=== PATIENT | female | born 1955 | race Caucasian/White ===

== ENCOUNTER → 2017-10-18 | Outpatient (CLI) | payer OTHER ==
[~2017-10-18] MED LIST: ALPHA LIPOIC A100 MG PO; ALPHA LIPOIC A300 MG PO; CALCIUM 600 +1 EAC1 PO; CENTRUM SILVER1 EAC2 PO; CENTRUM SILVER1 EAC4 PO; FISH OIL 500 M1 EAC1 PO; HYDROCHLOROTHIA25 M2 PO; MAGOX 400400 MG PO; PRINIVIL20 MG PO; ULTRAM 50MG TAB50 MG PO; VITAMIN D1000 UNI1 PO; VITAMIN E400 UNIT PO
== END ==
LOC: M.RAD 14:56
DX: Z12.31 Encounter for screening mammogram for malignant neoplasm of breast (principal)

== ENCOUNTER → 2018-12-07 | Outpatient (CLI) | payer OTHER | LOC: M.RAD 12-04 16:00 | DX: Z12.31 Encounter for screening mammogram for malignant neoplasm of breast (principal) ==

== ENCOUNTER → 2020-01-02 | Outpatient (CLI) | payer BC, OTHER | END | disposition home or self-care (01) | LOC: M.RAD 16:14 | PROVIDERS: ATTEND Internal Medicine Hematology & Oncology | DX: Z12.31 Encounter for screening mammogram for malignant neoplasm of breast (principal) ==